=== PATIENT | male | born 1935 | race Caucasian/White ===

== ENCOUNTER → 2016-03-20 | Outpatient (CLI) | payer OTHER ==
[2016-03-20 10:07] LABS: ALANINE AMINOTRANSFERASE 39 U/L (21-72); ALBUMIN 4.7 g/dL (3.5-5.0); ALKALINE PHOSPHATASE 79 U/L (38-126); ASPARTATE AMINO TRANSFERASE 30 U/L (17-59); BILIRUBIN,TOTAL 1.2 mg/dL (0.2-1.3); CHOLESTEROL 107.83 mg/dL (0-200); Direct HDL 37 mg/dL (>40); TOTAL PROTEIN 7.3 g/dL (6.3-8.2); TRIGLYCERIDES 96 mg/dL (<150)
[2016-03-20 10:08] LABS: ANION GAP 10 (5-19); BLOOD UREA NITROGEN 16 mg/dL (7-20); CALCIUM 9.5 mg/dL (8.4-10.2); CARBON DIOXIDE 32 mmol/L (22-30); CHLORIDE 107 mmol/L (98-107); CREATININE RESULT 0.97 mg/dL (0.52-1.25); GLUCOSE 90 mg/dL (75-110); POTASSIUM 4.6 mmol/L (3.6-5.0); SODIUM 148.6 mmol/L (137-145)
[2016-03-20 10:18] LABS: DIRECT LDL 53 mg/dL (<100)
[2016-03-20 10:22] LABS: FREE T3 3.59 pg/mL (2.77-5.27)
== END ==
LOC: OD 08:36
PROVIDERS: ATTEND Internal Medicine Cardiovascular Disease
DX: E03.9 Hypothyroidism, unspecified (principal); E78.00 Pure hypercholesterolemia, unspecified; Z79.899 Other long term (current) drug therapy
CPT/HCPCS: 36415; 80048; 80061; 80076; 84439; 84443; 84481

== ENCOUNTER → 2017-04-09 | Outpatient (CLI) | payer MEDICARE ==
--- NOTE | 2017-04-09 09:02 | RADIOLOGY REPORT (SQ) ---
EXAM DESCRIPTION: CHEST PA/LATERAL COMPLETED DATE/TIME: 04/09/2017 8:51 am REASON FOR STUDY: BRONCHITIS, NOT SPECIFIED ACUTE OR CHRONIC COMPARISON: 02/06/2008, 08/17/2007 NUMBER OF VIEWS: Two view. TECHNIQUE: Frontal and lateral radiographic views of the chest acquired. LIMITATIONS: None. FINDINGS: LUNGS AND PLEURA: Interstitial changes both lower lung zones greater on the right. These are more prominent than on the older chest x-rays and may represent progression of pulmonary interst itial disease versus superimposition of active infiltrate particularly on the left. Followup chest x -ray in 4 to 6 weeks after treatment may be a consideration. MEDIASTINUM AND HILAR STRUCTURES: No masses or contour abnormalities. HEART AND VASCULATURE: Heart normal size. No evidence for failure. BONY STRUCTURES: No acute findings. HARDWARE: None. OTHER: No other significant finding. IMPRESSION: Interstitial changes both lower lung zones significantly greater on the right. Progress ion since the older chest x-ray of 2007 and may represent progression of interstitial disease versus superimposition of active infiltrate. Followup chest x-ray in 4 to 6 weeks may be a consideration. TECHNICAL DOCUMENTATION: JOB ID: [id number] [employer]- All Rights Reserved
== END ==
LOC: OD 08:34
PROVIDERS: ATTEND Physician Assistant
DX: J40 Bronchitis, not specified as acute or chronic (principal)
CPT/HCPCS: 71046

== ENCOUNTER 2017-06-05 17:06 | Emergency (ER) | payer MEDICARE ==
[2017-06-05 17:14] VITALS: BP 114/48
--- NOTE | 2017-06-05 17:20 | ER Document Report ---
ED Medical Screen (RME) - General Chief Complaint: Fall Injury Stated Complaint: FALL/LACERATION ABOVE RIGHT EYE Time Seen by Provider: 06/05/17 17:14 Notes: Patient is an 82-year-old male who presents to the emergency department today secondary to a mechanical fall that occurred prior to arrival. Patient denies any symptoms prior to this fall. Patient has a gaping laceration just superior to his right eyebrow. Patient also complains of minimal right wrist pain described as "stiffness". Patient is on a baby aspirin a day. Patient denies any loss of consciousness, neck pain, dizziness, vision change, or headache. I have greeted and performed a rapid initial assessment of this patient. A comprehensive ED assessment and evaluation of the patient, analysis of test results, and completion of the medical decision making process will be conducted by additional ED providers. Review of systems: Constitutional: No symptoms reported EENT: No symptoms reported Cardiovascular: No symptoms reported Respiratory: No symptoms reported Gastrointestinal: No symptoms reported Genitourinary: No symptoms reported Musculoskeletal: Right wrist pain Skin: Laceration above right eyebrow Hematologic/Lymphatic: No symptoms reported Neurological/Psychological: No symptoms reported Yes All other systems reviewed and negative Physical Exam: General: Alert, appears well. HEENT: Normocephalic. Gaping laceration superior to right eyebrow. PERRLA. Extraocular movements intact. Oropharynx clear. Neck: Supple. Respiratory: No respiratory distress. Abdominal: Normal Inspection. No distension. Extremities: Minimal tenderness over right wrist. Neurological: Normal cognition. AAOx4. Normal speech. Psychological: Normal affect. Normal Mood. Skin: Warm. Dry. Normal color. TRAVEL OUTSIDE OF THE [place] IN LAST 30 DAYS: No - Related Data Allergies/Adverse Reactions: No Known Allergies Allergy (Verified 06/05/17 17:10) Past Medical History - Past Medical History Cardiac Medical History: Reports: Hx Heart Attack, Hx Hypertension - CONTROLLED Pulmonary Medical History: Denies: Hx Asthma Neurological Medical History: Denies: Hx Cerebrovascular Accident, Hx Seizures Renal/ Medical History: Denies: Hx Peritoneal Dialysis GI Medical History: Denies: Hx Hepatitis, Hx Hiatal Hernia, Hx Ulcer Infectious Medical History: Denies: Hx Hepatitis Past Surgical History: Reports: Hx Open Heart Surgery - 2008. Denies: Hx Pacemaker Physical Exam - Vital signs Vitals: Temp Pulse Resp BP Pulse Ox 97.5 F 78 18 114/48 L 93 06/05/17 17:13 06/05/17 17:13 06/05/17 17:13 06/05/17 17:13 06/05/17 17:13 Course - Vital Signs Vital signs: Temp Pulse Resp BP Pulse Ox 97.5 F 78 18 114/48 L 93 06/05/17 17:13 06/05/17 17:13 06/05/17 17:13 06/05/17 17:13 06/05/17 17:13 Doctor's Discharge - Discharge Referrals: JACKIE SALDIVAR PA-C [Primary Care Provider] - Follow up as needed Scribe Documentation - Scribe Written by [place]:: Zakiya Farias, 06/05/2017 1804 acting as scribe for :: Blaine
--- NOTE | 2017-06-05 17:36 | RADIOLOGY REPORT (SQ) ---
EXAM DESCRIPTION: CT HEAD WITHOUT COMPLETED DATE/TIME: 06/05/2017 5:24 pm REASON FOR STUDY: fall from standing COMPARISON: None. TECHNIQUE: Axial images acquired through the brain without intravenous contrast. Images reviewed wi th bone, brain and subdural windows. Additional sagittal and coronal reconstructions were generated. Images stored on PACS. All CT scanners at this facility use dose modulation, iterative reconstruction, and/or weight based d osing when appropriate to reduce radiation dose to as low as reasonably achievable (ALARA). [facility]: Dose Right [facility]: CareDose [facility]: Dose Right [facility]: Teradose 4D [facility]: [employer] RADIATION DOSE: CT Rad equipment meets quality standard of care and radiation dose reduction techniq ues were employed. CTDIvol: 53.2 mGy. DLP: 964 mGy-cm. mGy. LIMITATIONS: None. FINDINGS: VENTRICLES: Normal size and contour. CEREBRUM: Low density throughout the left frontal lobe consistent with previous infarct. This likely involves a portion of the medial right frontal lobe as well. No hemorrhage or mass or shift detecte d. CEREBELLUM: No masses. No hemorrhage. No alteration of density. No evidence for acute infarction. EXTRAAXIAL SPACES: No fluid collections. No masses. ORBITS AND GLOBE: No intra- or extraconal masses. Normal contour of globe without masses. CALVARIUM: No fracture. PARANASAL SINUSES: No fluid or mucosal thickening. SOFT TISSUES: No mass or hematoma. OTHER: No other significant finding. 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 2. No fracture or acute intracranial abnormality appreciat ed. EVIDENCE OF ACUTE STROKE: NO. COMMENT: Quality ID # [id number]: Final reports with documentation of one or more dose reduction techniques (e.g., Automated exposure control, adjustment of the mA and/or kV according to patient size, use of iterative reconstruction technique) TECHNICAL DOCUMENTATION: JOB ID: [id number] [employer]- All Rights Reserved Reading location - IP/workstation name: [email or web address]
--- NOTE | 2017-06-05 17:42 | RADIOLOGY REPORT (SQ) ---
EXAM DESCRIPTION: WRIST RIGHT 3 VIEWS COMPLETED DATE/TIME: 06/05/2017 5:28 pm REASON FOR STUDY: fall COMPARISON: None. NUMBER OF VIEWS: Three views right wrist. LIMITATIONS: None. FINDINGS: Osteopenic. Fairly nondisplaced fracture through the lateral aspect of the radius involvi ng the radial styloid. Ulna intact. Grossly normal carpal alignment without fracture. OTHER: No other significant finding. IMPRESSION: Mild intra-articular nondisplaced non impacted distal radial fracture. TECHNICAL DOCUMENTATION: JOB ID: [id number] Reading location - IP/workstation name: [email or web address]
[2017-06-05] MEDS ORDERED: LIDOCAINE 1%/EPINEPHRINE INJ 20 ML VIAL INJ ONE (18:14)
[2017-06-05] MEDS ORDERED: DIPH/PERTUSS(ACELL)/TETANUS VAC/PF 0.5 ML SYR (>=10YO) IM ONE (18:15)
--- NOTE | 2017-06-05 18:18 | ER Document Report ---
HPI - HPI Patient complains to provider of: fall Onset: Just prior to arrival Onset/Duration: Sudden Quality of pain: Achy Pain Level: 2 Context: Patient states that he was walking and tripped over the sidewalk falling on his right hand and hitting his head. Patient denies any loss of consciousness. Patient denies any nausea or vomiting. Patient reports only mild tenderness to right wrist area. Associated Symptoms: Other - Facial laceration, right wrist pain Exacerbated by: Movement Relieved by: Denies Similar symptoms previously: No Recently seen / treated by doctor: No - ROS ROS below otherwise negative: Yes Systems Reviewed and Negative: Yes All other systems reviewed and negative - NEURO Neurology: DENIES: Headache - GASTROINTESTINAL Gastrointestinal: DENIES: Nausea, Patient vomiting - MUSCULOSKELETAL Musculoskeletal: REPORTS: Extremity pain, Swelling. DENIES: Back Pain, Neck Pain - DERM Skin Color: Normal Skin Problems: Laceration Past Medical History - General Information source: Patient - Social History Smoking Status: Current Every Day Smoker Smoking Education Provided: Yes Frequency of alcohol use: None Drug Abuse: None Occupation: None Lives with: Family Family History: Reviewed & Not Pertinent Patient has suicidal ideation: No Patient has homicidal ideation: No - Past Medical History Cardiac Medical History: Reports: Hx Heart Attack, Hx Hypertension - CONTROLLED Pulmonary Medical History: Denies: Hx Asthma Neurological Medical History: Denies: Hx Cerebrovascular Accident, Hx Seizures Renal/ Medical History: Denies: Hx Peritoneal Dialysis GI Medical History: Denies: Hx Hepatitis, Hx Hiatal Hernia, Hx Ulcer Infectious Medical History: Denies: Hx Hepatitis Past Surgical History: Reports: Hx Open Heart Surgery - 2008. Denies: Hx Pacemaker Vertical Provider Document - CONSTITUTIONAL Agree With Documented VS: Yes Exam Limitations: No Limitations General Appearance: WD/WN, No Apparent Distress - INFECTION CONTROL TRAVEL OUTSIDE OF THE [place] IN LAST 30 DAYS: No - HEENT HEENT: Normal ENT Exam, Normocephalic, PERRLA Notes: Patient with 3 cm laceration to right brow area Extraocular movements intact - NECK Neck: Normal Inspection, Supple. negative: Lymphadenopathy-Left, Lymphadenopathy-Right Notes: No midline tenderness, step-off or deformity - RESPIRATORY Respiratory: Breath Sounds Normal, No Respiratory Distress - CARDIOVASCULAR Cardiovascular: Regular Rate, Regular Rhythm, No Murmur - BACK Back: Normal Inspection - MUSCULOSKELETAL/EXTREMETIES Musculoskeletal/Extremeties: MAEW, FROM, Tender - Animal tenderness to right distal radius, Edema - Right distal radius - NEURO Level of Consciousness: Awake, Alert, Appropriate Motor/Sensory: No Motor Deficit - DERM Integumentary: Warm, Dry, Laceration - Right brow area Course - Re-evaluation Re-evalutation: 06/05/17 18:17 Offered patient pain medication, patient declined - Vital Signs Vital signs: Temp Pulse Resp BP Pulse Ox 97.5 F 78 18 114/48 L 93 06/05/17 17:13 06/05/17 17:13 06/05/17 17:13 06/05/17 17:13 06/05/17 17:13 - Diagnostic Test Radiology reviewed: Image reviewed, Reports reviewed Procedures - Immobilization Right Wrist Pre-Proc Neuro Vasc Exam: Normal Immobilizer type: Sugar tong, Sling Performed by: PCT Post-Proc Neuro Vasc Exam: Normal Alignment checked and good: Yes - Laceration/Wound Repair Right Face Wound length (cm): 3 Wound's Depth, Shape: Irregular Laceration pre-procedure: Other - surgical scrub Anesthetic type: 1% Lidocaine w/epi Wound explored: Clean, No foreign body removed Irrigated w/ Saline (mLs): 40 Wound Repaired With: Sutures Suture Size/Type: 6:0, Nylon Number of Sutures: 10 Post-procedure NV exam normal: Yes Complications: No Adult Head Front/Back picture: 1 - 3 cm lac Discharge - Discharge Clinical Impression: Facial laceration Qualifiers: Encounter type: initial encounter Qualified Code(s): S01.81XA - Laceration without foreign body of other part of head, initial encounter Distal radius fracture, right Qualifiers: Encounter type: initial encounter Fracture type: closed Fracture morphology: unspecified fracture morphology Qualified Code(s): S52.501A - Unspecified fracture of the lower end of right radius, initial encounter for closed fracture Head injury Qualifiers: Encounter type: initial encounter Qualified Code(s): S09.90XA - Unspecified injury of head, initial encounter Condition: Stable Disposition: HOME, SELF-CARE Instructions: Acetaminophen, Fractured Radius ([facility]), Head Injury Precautions ( [facility]), Laceration Care ([facility]), Sling as Treatment ([facility]), Splint Precautions ([facility]) , Tetanus Immunization Given ([facility]) Additional Instructions: Return immediately for any new or worsening symptoms Followup with your primary care provider, call tomorrow to make a followup appointment Follow-up with orthopedic doctor for further evaluation, call Thursday for an appointment time Referrals: JACKIE SALDIVAR PA-C [Primary Care Provider] - Follow up as needed [facility] [Provider Group] - 06/08/17
== END 2017-06-05 19:10 | disposition home or self-care (01) ==
LOC: ER 17:06
PROC: 0HQ1XZZ Repair Face Skin, External Approach (ICD-10-PCS; principal; 2017-06-05)
DX: S01.81XA Laceration without foreign body of other part of head, initial encounter (principal); S52.501A Unspecified fracture of the lower end of right radius, initial encounter for closed fracture; M25.531 Pain in right wrist; R51 Headache; W01.0XXA Fall on same level from slipping, tripping and stumbling without subsequent striking against object, initial encounter; F17.210 Nicotine dependence, cigarettes, uncomplicated; Z23 Encounter for immunization
CPT/HCPCS: 99284; 90471; 73110; 70450; 90715; 12013; J3490

== ENCOUNTER → 2017-12-15 | Outpatient (CLI) | payer MEDICARE ==
--- NOTE | 2017-12-15 10:03 | RADIOLOGY REPORT (SQ) ---
EXAM DESCRIPTION: CT CHEST WITH COMPLETED DATE/TIME: 12/15/2017 9:08 am REASON FOR STUDY: ABN FINDINGS ON CHEST X RAY R91.8 OTHER NONSPECIFIC ABNORMAL FINDING OF LUNG FIEL D COMPARISON: Chest x-ray dated 04/09/2017. TECHNIQUE: CT scan of the chest performed using helical scanning technique with dynamic intravenous contrast injection. Images reviewed with lung, soft tissue and bone windows. Reconstructed coronal and sagittal MPR and MIP images reviewed. All images stored on PACS. All CT scanners at this facility use dose modulation, iterative reconstruction, and/or weight based d osing when appropriate to reduce radiation dose to as low as reasonably achievable (ALARA). [facility]: Dose Right [facility]: CareDose [facility]: Dose Right [facility]: Teradose 4D [facility]: [employer] CONTRAST TYPE AND DOSE: contrast/concentration: Isovue 350.00 mg/ml; Total Contrast Delivered: 80.0 ml; Total Saline Delivered: 55.0 ml RENAL FUNCTION: Creatinine 1.1. RADIATION DOSE: CT Rad equipment meets quality standard of care and radiation dose reduction techniq ues were employed. CTDIvol: 7.5 mGy. DLP: 265 mGy-cm. . LIMITATIONS: None. FINDINGS: LUNGS AND PLEURA: Central lobular emphysema. Peripheral interstitial scarring. Calcified pleural plaques. Spiculated mass in the right middle lobe measuring approximately 2 cm. No pleural effusion. HILAR AND MEDIASTINAL STRUCTURES: No identified masses or abnormal nodes. HEART AND VASCULAR STRUCTURES: No aneurysm or dissection. No central pulmonary emboli. No pericardi al effusion. HARDWARE: None in the chest. UPPER ABDOMEN: No significant findings. Limited exam. THYROID AND OTHER SOFT TISSUES: No masses. No adenopathy. BONES: No significant finding. OTHER: No other significant finding. IMPRESSION: CHRONIC EMPHYSEMATOUS CHANGES WITH SCARRING. CALCIFIED PLEURAL PLAQUES. SPICULATED MAS S IN THE RIGHT MIDDLE LOBE CONCERNING FOR MALIGNANCY. TECHNICAL DOCUMENTATION: JOB ID: [id number] Quality ID # [id number]: Final reports with documentation of one or more dose reduction techniques (e.g., Au tomated exposure control, adjustment of the mA and/or kV according to patient size, use of iterative reconstruction technique) 2010 [employer]- All Rights Reserved Reading location - IP/workstation name: [email or web address]
== END ==
LOC: RAD 08:17
PROVIDERS: ATTEND Internal Medicine Geriatric Medicine
DX: J43.9 Emphysema, unspecified (principal); R91.8 Other nonspecific abnormal finding of lung field
CPT/HCPCS: 71260; 82565

== ENCOUNTER → 2017-12-22 | Outpatient (CLI) | payer MEDICARE ==
--- NOTE | 2017-12-23 13:00 | RADIOLOGY REPORT (SQ) ---
EXAM DESCRIPTION: PET CT SKULL/THIGH COMPLETED DATE/TIME: 12/22/2017 7:59 pm REASON FOR STUDY: R91.1 SOLITARY PULMONARY NODULE J98.4 OTHER DISORDERS OF LUNG R91.1 SOLITARY PULM ONARY NODULE J98.4 OTHER DISORDERS OF LUNG COMPARISON: 12/15/2017 RADIONUCLIDE AND DOSE: 8.9 mCi F18 FDG The route of agent administration: Intravenous FASTING BLOOD SUGAR: 102 mg/dl CONTRAST TYPE AND DOSE: No CT contrast given. TECHNIQUE: Blood glucose level was verified. Above dose of FDG was injected intravenously. 2-D seg mented attenuation correction images were obtained from the base of the skull to the midthighs. Nonc ontrast CT images were obtained for attenuation correction and fusion with emission images. CT image s were performed without oral or intravenous contrast and are not sensitive for parenchymal lesions. A series of overlapping emission PET images were obtained. Images reviewed and manipulated at [facility] work station by the radiologist. Images stored on PACS. LIMITATIONS: None. FINDINGS: HEAD AND NECK: No areas of abnormal metabolic activity in the soft tissues of the head and neck. CHEST: 2 cm spiculated mass right middle lobe with SUV of 7.3 compatible with malignancy. This is be st shown on axial image 83/255. There are mediastinal metabolically active lymph nodes as follows: 1.9 x 1.1 cm right peritracheal lymph node image 64/255 with SUV of 1.8 Multiple less than 1 cm AP window lymph nodes image 65-68/255 with SUV of 2.4 8 mm right hilar lymph node axial image 71/255 with SUV of 2.1 ABDOMEN AND PELVIS: A 4 x 4 cm right colon/ cecum mass is present with SUV of 20 worrisome for primar y colon cancer. No mesenteric or retroperitoneal adenopathy. PROXIMAL LOWER EXTREMITIES: No areas of abnormal metabolic activity in the soft tissues of the lower extremities. BONES: No abnormal metabolic activity in the visualized skeleton. 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 Calc ified pleural plaques. Calcified gallstones. 1 cm right lower pole intrarenal nonobstructive kidney stone SUV 1,250 OTHER: Liver background activity 2.4 SUV. Blood pool background activity 1.3 SUV IMPRESSION: Malignant mass in the right middle lobe with metabolically active small mediastinal lymp h nodes 4 cm hypermetabolic cecal mass worrisome for colon cancer TECHNICAL DOCUMENTATION: JOB ID: [id number] [employer]- All Rights Reserved Reading location - IP/workstation name: [email or web address]
== END ==
LOC: RAD 19:47
PROVIDERS: ATTEND Internal Medicine Critical Care Medicine
DX: J98.4 Other disorders of lung (principal); R91.1 Solitary pulmonary nodule; K80.80 Other cholelithiasis without obstruction; N20.0 Calculus of kidney; Z95.1 Presence of aortocoronary bypass graft
CPT/HCPCS: 78815; A9552

== ENCOUNTER 2018-07-31 13:15 | Inpatient (IN) | payer MEDICARE ==
[2018-07-31] MEDS ORDERED: ASPIRIN 81 MG TABLET, CHEWABLE PO ONE (14:18)
[2018-07-31] MEDS ORDERED: DILTIAZEM HCL INJ 25 MG/5 ML VIAL IV ONE (14:19)
--- NOTE | 2018-07-31 14:30 | ER Document Report ---
ED General - General Chief Complaint: Breathing Difficulty Stated Complaint: SHORTNESS OF BREATH Time Seen by Provider: 07/31/18 14:06 Primary Care Provider: ALLEN CHAN MD [Primary Care Provider] - Follow up as needed TRAVEL OUTSIDE OF THE [place] IN LAST 30 DAYS: No - HPI Notes: Patient is an 83-year-old male who presents to the emergency department for evaluation. He has been short of breath. I asked him how long he is felt short of breath, he states it has been since he received radiation at [place] for several months ago. He is currently being treated for lung cancer, last chemotherapy treatment 1 month ago. He also has a history of colon cancer. I asked him if he has chest pain, and he basically states he has chest pain every day. He states that he also gets chest pain with walking. He has not really discussed this with his primary care physician, but states he did discuss this with his oncologist. He denies any popping or paroxysmal nocturnal dyspnea. He does note swelling in his ankles. He cannot tell me how long this been going on. - Related Data Allergies/Adverse Reactions: No Known Allergies Allergy (Verified 07/31/18 13:19) Past Medical History - General Information source: Patient - Social History Smoking Status: Former Smoker Frequency of alcohol use: None Drug Abuse: None Family History: Reviewed & Not Pertinent - Past Medical History Cardiac Medical History: Reports: Hx Coronary Artery Disease, Hx Heart Attack, Hx Hypertension - CONTROLLED Pulmonary Medical History: Reports: Hx COPD, Hx Pneumonia Denies: Hx Asthma, Hx Bronchitis Neurological Medical History: Denies: Hx Cerebrovascular Accident, Hx Seizures Renal/ Medical History: Denies: Hx Peritoneal Dialysis Malignancy Medical History: Reports Hx Colorectal Cancer, Reports Hx Lung Cancer GI Medical History: Denies: Hx Hepatitis, Hx Hiatal Hernia, Hx Ulcer Musculoskeletal Medical History: Denies Hx Arthritis Infectious Medical History: Denies: Hx Hepatitis Past Surgical History: Reports: Hx Open Heart Surgery - 2008. Denies: Hx Pacemaker - Immunizations Hx Diphtheria, Pertussis, Tetanus Vaccination: No Review of Systems - Review of Systems Constitutional: See HPI EENT: No symptoms reported Cardiovascular: See HPI Respiratory: See HPI Gastrointestinal: No symptoms reported Genitourinary: No symptoms reported Musculoskeletal: See HPI Skin: No symptoms reported Neurological/Psychological: No symptoms reported Physical Exam - Vital signs Vitals: Temp Pulse Resp BP Pulse Ox 97.8 F 79 32 H 140/74 H 89 L 07/31/18 13:26 07/31/18 13:26 07/31/18 13:26 07/31/18 13:26 07/31/18 13:26 - Notes Notes: This is a pale 83-year-old gentleman, appears stated age, mildly tachypneic but no significant distress. Vital signs reviewed, please refer to chart. Head is normocephalic, atraumatic. Pupils equal round, reactive to light. Neck is supple without meningismus. Heart is irregularly irregular and markedly rapid. Lungs reveal bibasilar rales. Abdomen is soft, nontender, normoactive bowel sounds throughout. Extremities without cyanosis, clubbing. 2+ pitting edema at the ankles. Posterior calves are nontender. Peripheral pulses are equal. Skin is warm and dry. Patient is awake, alert, neurological exam is nonfocal. Course - Re-evaluation Re-evalutation: 07/31/18 14:29 Patient presents emergency department for evaluation. He had an EKG performed which revealed rapid atrial fibrillation. I went in to evaluate the patient. He was on oxygen by nasal cannula, on the awake overnight monitor. Laboratory investigations were ordered, as her chest x-ray, and Cardizem bolus and drip. We will continue to follow. 07/31/18 16:10 Patient's heart rate responded significantly to the initial Cardizem bolus. The drip was held, but his heart rate slowly creeped up into the 115 120 range. He was restarted on Cardizem. Laboratory investigations largely unremarkable. Will administer Lovenox, given increased risk of embolic event with atrial fibrillation, and will admit for further care. 07/31/18 16:13 07/31/18 17:[address] Camilo, he will admit the patient for Dr. Chan. - Vital Signs Vital signs: Temp Pulse Resp BP Pulse Ox 97.8 F 79 32 H 140/74 H 89 L 07/31/18 13:26 07/31/18 13:26 07/31/18 13:26 07/31/18 13:26 07/31/18 13:26 - Laboratory Result Diagrams: 07/31/18 14:38 07/31/18 14:38 Laboratory results interpreted by me: 07/31/18 07/31/18 14:38 14:38 RBC 3.36 L Hgb 10.9 L Hct 33.1 L MCV 99 H RDW 14.2 H Plt Count 120 L Sodium 147.6 H Carbon Dioxide 35 H BUN 25 H Creatine Kinase 48 L Total Protein 6.2 L Albumin 3.3 L - Diagnostic Test Radiology reviewed: Reports reviewed Radiology results interpreted by me: 07/31/18 16:09 Chest X-Ray 07/31/18 14:18 IMPRESSION: New right middle lobe consolidation when compared to PET-CT of 12/24/2017, which obscures the known right middle lobe mass. Findings may be related to post therapy changes or pneumonia in the appropriate clinical setting. - EKG Interpretation by Me Additional EKG results interpreted by me: 07/31/18 14:29 Atrial fibrillation with a rate of 142 bpm. Right axis deviation, although I do suspect lead placement. Right bundle branch block. Nonspecific ST changes, but no acute changes concerning for acute infarction. No old studies for comparison. 07/31/18 16:09 Repeat EKG reveals atrial flutter with a rate of 88 bpm, continued right bundle branch block, no other changes. Discharge - Discharge Clinical Impression: Rapid atrial fibrillation Condition: Stable Disposition: ADMITTED INPATIENT Admitting Provider: Gustabo Camilo covering Unit Admitted: I[facility] Referrals: ALLEN CHAN MD [Primary Care Provider] - Follow up as needed
--- NOTE | 2018-07-31 14:46 | RADIOLOGY REPORT (SQ) ---
EXAM DESCRIPTION: CHEST SINGLE VIEW COMPLETED DATE/TIME: 07/31/2018 2:33 pm REASON FOR STUDY: dyspnea, new atrial fibrillation COMPARISON: 12/22/2017 and earlier EXAM PARAMETERS: NUMBER OF VIEWS: One view. TECHNIQUE: Single frontal radiographic view of the chest acquired. RADIATION DOSE: NA LIMITATIONS: None. FINDINGS: LUNGS AND PLEURA: New right middle lobe consolidation. Chronic coarsened interstitial mar kings bilaterally. The previously visualized right middle lobe mass is obscured due to the consolida tion. No sizable pleural effusion. No pneumothorax. MEDIASTINUM AND HILAR STRUCTURES: No masses. Contour normal. HEART AND VASCULAR STRUCTURES: Heart normal in size. Normal vasculature. BONES: No acute findings. HARDWARE: Postsurgical changes of the mediastinum. OTHER: No other significant finding. IMPRESSION: New right middle lobe consolidation when compared to PET-CT of 12/24/2017, which obscures the known right middle lobe mass. Findings may be related to post therapy changes or pneumonia in t he appropriate clinical setting. TECHNICAL DOCUMENTATION: JOB ID: [id number] [employer]- All Rights Reserved Reading location - IP/workstation name: [email or web address]
[2018-07-31 15:05] LABS: ABSOLUTE EOSINOPHILS # (AUTO) 0.1 10^3/uL (0.0-0.6); ABSOLUTE LYMPHOCYTES (AUTO) 1.2 10^3/uL (0.5-4.7); ABSOLUTE MONOCYTES (AUTO) 0.7 10^3/uL (0.1-1.4); BASOPHILS % (AUTO) 0.4 % (0-2); EOSINOPHILS % (AUTO) 2.4 % (0-6); HEMATOCRIT 33.1 % (37.9-51.0); HEMOGLOBIN 10.9 g/dL (13.5-17.0); LYMPHOCYTES % (AUTO) 19.9 % (13-45); MEAN CORPUSCULAR HEMOGLOBIN 32.5 pg (27.0-33.4); MEAN CORPUSCULAR VOLUME 99 fl (80-97); MONOCYTES % (AUTO) 10.8 % (3-13); PLATELET COUNT 120 10^3/uL (150-450); RED BLOOD COUNT 3.36 10^6/uL (4.35-5.55); RED CELL DISTRIBUTION WIDTH 14.2 % (11.5-14.0); SEGMENTED NEUTROPHILS % (AUTO) 66.5 % (42-78); TOTAL CELLS COUNTED % (AUTO) 100 %; WHITE BLOOD COUNT 6.1 10^3/uL (4.0-10.5)
[2018-07-31 15:15] LABS: ALANINE AMINOTRANSFERASE 25 U/L (21-72); ALBUMIN 3.3 g/dL (3.5-5.0); ALKALINE PHOSPHATASE 76 U/L (38-126); ANION GAP 6 (5-19); ASPARTATE AMINO TRANSFERASE 22 U/L (17-59); BILIRUBIN,DIRECT 0.2 mg/dL (0.0-0.4); BILIRUBIN,TOTAL 0.9 mg/dL (0.2-1.3); BLOOD UREA NITROGEN 25 mg/dL (7-20); CALCIUM 8.8 mg/dL (8.4-10.2); CARBON DIOXIDE 35 mmol/L (22-30); CHLORIDE 107 mmol/L (98-107); CREATINE KINASE 48 U/L (55-170); GLUCOSE 107 mg/dL (75-110); POTASSIUM 4.3 mmol/L (3.6-5.0); SODIUM 147.6 mmol/L (137-145); TOTAL PROTEIN 6.2 g/dL (6.3-8.2)
[2018-07-31 15:33] LABS: CREATINE KINASE MB 2.04 ng/mL (<4.55); TROPONIN I 0.014 ng/mL
[2018-07-31] MEDS: DILTIAZEM HCL/D5W 125 MG/125 ML RTUINJ IV PRN (16:06)
[2018-07-31] MEDS ORDERED: ENOXAPARIN SODIUM INJ 80 MG/0.8 ML DISP.SYRIN SUBCUT ONE (16:12)
--- NOTE | 2018-07-31 17:52 | EKG REPORT ---
SEVERITY:- ABNORMAL ECG - ATRIAL FIB/FLUTTER, 88/MIN. CONSIDER DEXTROCARDIA : Confirmed by: Lon Kennedy MD 31-Jul-2018 17:51:51
--- NOTE | 2018-07-31 17:53 | EKG REPORT ---
SEVERITY:- ABNORMAL ECG - ATRIAL FIBRILLATION RVR 142. RBBB AND LPFB INFERIOR INFARCT, AGE INDETERMINATE LATERAL INFARCT, OLD : Confirmed by: Lon Kennedy MD 31-Jul-2018 17:52:58
--- NOTE | 2018-08-01 05:12 | RADIOLOGY REPORT (SQ) ---
EXAM DESCRIPTION: XR CHEST 1 VIEW COMPLETED DATE/TME: 08/01/2018 04:31 CLINICAL HISTORY: 83 years, Male, difficulty breathing COMPARISON: 07/31/2018 chest NUMBER OF VIEWS: 1 TECHNIQUE: Portable chest LIMITATIONS: None. FINDINGS: Heart size is stable. Grossly stable postsurgical change. Mixed interstitial and airspace opacities bilaterally. Osteopenia. No pneumothorax. IMPRESSION: Little interval change copyright 2010 [employer]- All Rights Reserved
[2018-08-01 06:10] LABS: ABSOLUTE EOSINOPHILS # (AUTO) 0.2 10^3/uL (0.0-0.6); ABSOLUTE LYMPHOCYTES (AUTO) 1.2 10^3/uL (0.5-4.7); ABSOLUTE MONOCYTES (AUTO) 0.6 10^3/uL (0.1-1.4); ABSOLUTE NEUT (AUTO) 3.4 10^3/uL (1.7-8.2); BASOPHILS % (AUTO) 0.3 % (0-2); EOSINOPHILS % (AUTO) 2.9 % (0-6); HEMATOCRIT 30.9 % (37.9-51.0); LYMPHOCYTES % (AUTO) 22.9 % (13-45); MEAN CORPUSCULAR HGB CONC 32.4 g/dL (32.0-36.0); MEAN CORPUSCULAR VOLUME 99 fl (80-97); MONOCYTES % (AUTO) 10.7 % (3-13); PLATELET COUNT 102 10^3/uL (150-450); RED BLOOD COUNT 3.13 10^6/uL (4.35-5.55); RED CELL DISTRIBUTION WIDTH 14.2 % (11.5-14.0); SEGMENTED NEUTROPHILS % (AUTO) 63.2 % (42-78); TOTAL CELLS COUNTED % (AUTO) 100 %; WHITE BLOOD COUNT 5.3 10^3/uL (4.0-10.5)
[2018-08-01 06:22] LABS: ANION GAP 6 (5-19); BLOOD UREA NITROGEN 20 mg/dL (7-20); CALCIUM 8.3 mg/dL (8.4-10.2); CARBON DIOXIDE 34 mmol/L (22-30); CHLORIDE 106 mmol/L (98-107); GLUCOSE 103 mg/dL (75-110); POTASSIUM 3.9 mmol/L (3.6-5.0); SODIUM 145.5 mmol/L (137-145)
[2018-08-01] MEDS: DILTIAZEM HCL/D5W 125 MG/125 ML RTUINJ IV PRN ×2 (06:47→21:11)
[2018-08-01] MEDS: ACETYLCYSTEINE 20% SOLN 800 MG/4 ML VIAL.NEB NEB SCH ×2 (10:00→19:56)
[2018-08-01 11:06] LABS: ARTERIAL BLOOD BASE EXCESS 7.4 mmol/L; ARTERIAL BLOOD H2CO3 2.19 mmol/L (1.05-1.35); ARTERIAL BLOOD HCO3 35.9 mmol/L (20-24); ARTERIAL BLOOD O2 SATURATION 93.6 % (94-98); ARTERIAL BLOOD PH 7.31 (7.35-7.45); ARTERIAL BLOOD PO2 76.8 mmHg (80-100); ARTERIAL BLOOD TOTAL CO2 38.1 mmol/L (23-27)
[2018-08-01 11:07] LABS: ARTERIAL BLOOD FIO2 5L
[2018-08-01 11:08] LABS: ARTERIAL BLOOD PCO2 72.9 mmHg (35-45)
[2018-08-01] MEDS: METOPROLOL TARTRATE 50 MG TABLET PO SCH ×2 (12:06→21:07)
--- NOTE | 2018-08-01 13:04 | RADIOLOGY REPORT (SQ) ---
EXAM DESCRIPTION: CT CHEST WITH COMPLETED DATE/TIME: 08/01/2018 11:41 am REASON FOR STUDY: copd ? metastatic lung disease COMPARISON: Chest films 08/01/2018, 07/31/2018, 04/09/2017 PET-CT 12/22/2017 CT chest 12/15/2017 TECHNIQUE: CT scan of the chest performed using helical scanning technique with dynamic intravenous contrast injection. Images reviewed with lung, soft tissue and bone windows. Reconstructed coronal and sagittal MPR and MIP images reviewed. All images stored on PACS. All CT scanners at this facility use dose modulation, iterative reconstruction, and/or weight based d osing when appropriate to reduce radiation dose to as low as reasonably achievable (ALARA). [facility]: Dose Right [facility]: CareDose [facility]: Dose Right [facility]: Teradose 4D [facility]: Refinder by [employer] CONTRAST TYPE AND DOSE: contrast/concentration: Isovue 350.00 mg/ml; Total Contrast Delivered: 70.0 ml; Total Saline Delivered: 55.0 ml RENAL FUNCTION: Creatinine 1.1 RADIATION DOSE: CT Rad equipment meets quality standard of care and radiation dose reduction techniq ues were employed. CTDIvol: 12.4 mGy. DLP: 448 mGy-cm. . LIMITATIONS: None. FINDINGS: LUNGS AND PLEURA: There is dense consolidation in the right lung base obscuring the malign ant appearing 2 cm mass seen in the right middle lobe on CT chest 12/15/2017, PET-CT 12/22/2017. Chronic appearing pleural calcification and pleural thickening is present in the right posterior cost ophrenic sulcus. Since the prior CT exams 12/15/2017, patient has developed a rind of circumferential right pleural th ickening, and very dense consolidation the right middle lobe and perihilar regions. Question post th erapeutic changes from right-sided radiation therapy. On the left side, trace pleural fluid/pleural thickening in the posterior costophrenic sulcus is pres ent. No gross pulmonary infiltrates or worrisome pulmonary nodules on the left. HILAR AND MEDIASTINAL STRUCTURES: 2.5 x 1.8 cm right paratracheal lymph node axial image 20, larger t kang on 12/15/2017. HEART AND VASCULAR STRUCTURES: No aneurysm or dissection. No central pulmonary emboli. No pericardi al effusion. Old sternotomy for CABG. Calcified aortic valve HARDWARE: None in the chest. UPPER ABDOMEN: No significant findings. Limited exam. THYROID AND OTHER SOFT TISSUES: No masses. No adenopathy. BONES: No significant finding. OTHER: No other significant finding. IMPRESSION: Patient has developed diffuse right pleural thickening and dense consolidation in the ri ght middle lobe in the area of prior spiculated nodule. These findings likely represent post radiati on change. TECHNICAL DOCUMENTATION: JOB ID: [id number] Quality ID # [id number]: Final reports with documentation of one or more dose reduction techniques (e.g., Au tomated exposure control, adjustment of the mA and/or kV according to patient size, use of iterative reconstruction technique) 2010 [employer]- All Rights Reserved Reading location - IP/workstation name: [email or web address]
--- NOTE | 2018-08-01 13:38 | PDOC H&P ---
History of Present Illness Admission Date/PCP: 07/31/18 17:05 ALLEN CHAN History of Present Illness: ZULAY LEONARD is a 83 year old male he came to the emergency room for evaluation of shortness of breath, in the emergency room he was found to be in atrial fibrillation with rapid ventricular response, he was started on Cardizem infusion in the emergency room. He has underlining multiple chronic comorbid conditions including COPD, squamous cell lung cancer and colon cancer. He apparently was diagnosed with squamous cell lung cancer back in January 2018, he has been going to [facility] for radiation treatment. In the emergency room after he was evaluated it was felt that he needed to be admitted for further treatment inpatient. The arterial blood gas that was done revealed acute respiratory acidosis, the pH 7.31, PCO2 72.9, PO2 76.8, bicarbonate 35.9, FiO2 5 L patient requires BiPAP machine. I discussed with team about CODE STATUS, he expresses a desire to be DNR. CT chest was done with contrast, it demonstrated a dense consolidation in the right lung base obscuring the malignant appearing 2 cm mass in the right middle lobe from CT chest on 12/16/19 18, a PET CT scan done on 12/22 there is chronic appearing pleural calcification and pleural thickening in the right posterior costophrenic sulcus. Since prior examination he has developed a ring of circumferential right pleural thickening of very dense consolidation in the right middle lobe and perihilar regions this changes suggests post radiation changes. Patient overall prognosis is very poor, he knows that, he is also considering palliative/hospice care as a potential option for his care. Past Medical History Cardiac Medical History: Reports: Coronary Artery Disease, Myocardial Infarction, Hypertension - CONTROLLED Pulmonary Medical History: Reports: Chronic Obstructive Pulmonary Disease (COPD), Pneumonia Denies: Asthma, Bronchitis Neurological Medical History: Denies: Seizures Malignancy Medical History: Reports: Colorectal Cancer, Lung Cancer GI Medical History: Denies: Hepatitis, Hiatal Hernia Musculoskeltal Medical History: Denies: Arthritis Psychiatric Medical History: Denies: Depression Hematology: Denies: Anemia, Sickle Cell Disease Past Surgical History Past Surgical History: Denies: Pacemaker Social History Smoking Status: Former Smoker Cigars Per Day: 1 Last Time Smoked: 03/2018 Frequency of Alcohol Use: Rare Hx Recreational Drug Use: No Hx Prescription Drug Abuse: No - Advance Directive Resuscitation Status: Do Not Resuscitate Family History Family History: Reviewed & Not Pertinent Parental Family History Reviewed: Yes Children Family History Reviewed: Yes Sibling(s) Family History Reviewed.: Yes Medication/Allergy Home Medications: Aspirin [Ecotrin 81 mg EC Tablet] 81 mg PO DAILY 06/27/14 Metoprolol Tartrate [Lopressor 50 mg Tablet] 50 mg PO DAILY 06/27/14 Rosuvastatin Calcium [Crestor 10 mg Tablet] 10 mg PO DAILY 06/27/14 Albuterol Sulfate [Ventolin Hfa 8 gm Mdi (1 Mdi/ER Disp)] 2 puff IH Q4HP PRN 08/01/18 Ferrous Sulfate [Feosol 325 mg Tablet] 325 mg PO BID 08/01/18 Umeclidinium Brm/Vilanterol Tr [Anoro Ellipta 62.5-25 Mcg INH] 1 each IH DAILY 08/01/18 Allergies/Adverse Reactions: No Known Allergies Allergy (Verified 07/31/18 13:19) Review of Systems Constitutional: ABSENT: chills, fever(s), headache(s), weight gain, weight loss Eyes: ABSENT: visual disturbances Ears: ABSENT: hearing changes Cardiovascular: PRESENT: dyspnea on exertion, palpitations Respiratory: PRESENT: dyspnea Gastrointestinal: ABSENT: abdominal pain, constipation, diarrhea, hematemesis, hematochezia, nausea, vomiting Genitourinary: ABSENT: dysuria, hematuria Musculoskeletal: ABSENT: joint swelling Integumentary: ABSENT: rash, wounds Neurological: ABSENT: abnormal gait, abnormal speech, confusion, dizziness, focal weakness, syncope Psychiatric: ABSENT: anxiety, depression, homidical ideation, suicidal ideation Endocrine: ABSENT: cold intolerance, heat intolerance, menstrual abnormalities, polydipsia, polyuria Hematologic/Lymphatic: ABSENT: easy bleeding, easy bruising, lymphadenopathy Physical Exam Vital Signs: Temp Pulse Resp BP Pulse Ox 97.7 F 96 22 H 104/55 L 93 08/01/18 03:24 08/01/18 07:00 08/01/18 03:24 08/01/18 06:00 08/01/18 03:24 Intake & Output 07/31/18 08/01/18 08/02/18 06:59 06:59 06:59 Intake Total 318 Output Total 225 Balance 93 Weight 80.5 kg General appearance: PRESENT: severe distress Head exam: PRESENT: atraumatic, normocephalic Eye exam: PRESENT: PERRLA Ear exam: PRESENT: normal external ear exam Mouth exam: PRESENT: moist, tongue midline Neck exam: PRESENT: full ROM Respiratory exam: PRESENT: wheezes Cardiovascular exam: PRESENT: RRR, +S1, +S2 Pulses: PRESENT: normal dorsalis pedis pul, +2 pedal pulses bilateral Vascular exam: PRESENT: normal capillary refill GI/Abdominal exam: PRESENT: normal bowel sounds, soft Rectal exam: PRESENT: deferred Neurological exam: PRESENT: alert, CN II-XII grossly intact. ABSENT: motor sensory deficit Psychiatric exam: PRESENT: appropriate affect, normal mood Skin exam: PRESENT: dry, intact, warm. ABSENT: cyanosis, rash Results Laboratory Results: 08/01/18 05:30 08/01/18 05:30 07/31/18 07/31/18 07/31/18 14:38 14:38 14:38 WBC 6.1 RBC 3.36 L Hgb 10.9 L Hct 33.1 L MCV 99 H MCH 32.5 MCHC 33.0 RDW 14.2 H Plt Count 120 L Seg Neutrophils % 66.5 Lymphocytes % 19.9 Monocytes % 10.8 Eosinophils % 2.4 Basophils % 0.4 Absolute Neutrophils 4.0 Absolute Lymphocytes 1.2 Absolute Monocytes 0.7 Absolute Eosinophils 0.1 Absolute Basophils 0.0 Carbonic Acid HCO3/H2CO3 Ratio ABG pH ABG pCO2 ABG pO2 ABG HCO3 ABG O2 Saturation ABG Base Excess FiO2 Sodium 147.6 H Potassium 4.3 Chloride 107 Carbon Dioxide 35 H Anion Gap 6 BUN 25 H Creatinine 1.08 Est GFR ( Amer) > 60 Est GFR (Non-Af Amer) > 60 Glucose 107 Calcium 8.8 Total Bilirubin 0.9 AST 22 ALT 25 Alkaline Phosphatase 76 Total Protein 6.2 L Albumin 3.3 L TSH 3.74 08/01/18 08/01/18 08/01/18 05:30 05:30 10:43 WBC 5.3 RBC 3.13 L Hgb 10.0 L Hct 30.9 L MCV 99 H MCH 32.0 MCHC 32.4 RDW 14.2 H Plt Count 102 L Seg Neutrophils % 63.2 Lymphocytes % 22.9 Monocytes % 10.7 Eosinophils % 2.9 Basophils % 0.3 Absolute Neutrophils 3.4 Absolute Lymphocytes 1.2 Absolute Monocytes 0.6 Absolute Eosinophils 0.2 Absolute Basophils 0.0 Carbonic Acid 2.19 H HCO3/H2CO3 Ratio 16:1 ABG pH 7.31 L ABG pCO2 72.9 H* ABG pO2 76.8 L ABG HCO3 35.9 H ABG O2 Saturation 93.6 L ABG Base Excess 7.4 FiO2 5L Sodium 145.5 H Potassium 3.9 Chloride 106 Carbon Dioxide 34 H Anion Gap 6 BUN 20 Creatinine 1.03 Est GFR ( Amer) > 60 Est GFR (Non-Af Amer) > 60 Glucose 103 Calcium 8.3 L Total Bilirubin AST ALT Alkaline Phosphatase Total Protein Albumin TSH 07/31/18 07/31/18 14:38 14:38 Creatine Kinase 48 L CK-MB (CK-2) 2.04 Troponin I 0.014 Impressions: Chest CT 08/01/18 00:00 IMPRESSION: Patient has developed diffuse right pleural thickening and dense consolidation in the right middle lobe in the area of prior spiculated nodule. These findings likely represent post radiation change. Chest X-Ray 08/01/18 04:31 IMPRESSION: Little interval change copyright 2011 [employer]- All Rights Reserved Assessment & Plan - Diagnosis (1) Acute hypercapnic respiratory failure Is this a current diagnosis for this admission?: Yes Plan: Start BiPAP machine to support breathing (2) Atrial fibrillation with RVR Is this a current diagnosis for this admission?: Yes Plan: Start Cardizem drip (3) Squamous cell carcinoma lung Qualifiers: Laterality: right Qualified Code(s): C34.91 - Malignant neoplasm of unspecified part of right bronchus or lung Is this a current diagnosis for this admission?: Yes (4) COPD with acute exacerbation Is this a current diagnosis for this admission?: Yes Plan: Start Solu-Medrol with bronchodilators
--- NOTE | 2018-08-01 13:41 | PDOC PROGRESS REPORT ---
Subjective Progress Note for:: 08/01/18 Subjective:: Patient was seen by the bedside, he continues to require BiPAP Reason For Visit: RAPID ATRIAL FIBRILLATION Physical Exam Vital Signs: Temp Pulse Resp BP Pulse Ox 97.7 F 96 22 H 104/55 L 93 08/01/18 03:24 08/01/18 07:00 08/01/18 03:24 08/01/18 06:00 08/01/18 03:24 Intake & Output 07/31/18 08/01/18 08/02/18 06:59 06:59 06:59 Intake Total 318 Output Total 225 Balance 93 Weight 80.5 kg General appearance: PRESENT: mild distress Eye exam: PRESENT: PERRLA Respiratory exam: PRESENT: wheezes Cardiovascular exam: PRESENT: +S1, +S2 GI/Abdominal exam: PRESENT: soft Neurological exam: PRESENT: alert Results Laboratory Results: 08/01/18 05:30 08/01/18 05:30 07/31/18 07/31/18 07/31/18 14:38 14:38 14:38 WBC 6.1 RBC 3.36 L Hgb 10.9 L Hct 33.1 L MCV 99 H MCH 32.5 MCHC 33.0 RDW 14.2 H Plt Count 120 L Seg Neutrophils % 66.5 Lymphocytes % 19.9 Monocytes % 10.8 Eosinophils % 2.4 Basophils % 0.4 Absolute Neutrophils 4.0 Absolute Lymphocytes 1.2 Absolute Monocytes 0.7 Absolute Eosinophils 0.1 Absolute Basophils 0.0 Carbonic Acid HCO3/H2CO3 Ratio ABG pH ABG pCO2 ABG pO2 ABG HCO3 ABG O2 Saturation ABG Base Excess FiO2 Sodium 147.6 H Potassium 4.3 Chloride 107 Carbon Dioxide 35 H Anion Gap 6 BUN 25 H Creatinine 1.08 Est GFR ( Amer) > 60 Est GFR (Non-Af Amer) > 60 Glucose 107 Calcium 8.8 Total Bilirubin 0.9 AST 22 ALT 25 Alkaline Phosphatase 76 Total Protein 6.2 L Albumin 3.3 L TSH 3.74 08/01/18 08/01/18 08/01/18 05:30 05:30 10:43 WBC 5.3 RBC 3.13 L Hgb 10.0 L Hct 30.9 L MCV 99 H MCH 32.0 MCHC 32.4 RDW 14.2 H Plt Count 102 L Seg Neutrophils % 63.2 Lymphocytes % 22.9 Monocytes % 10.7 Eosinophils % 2.9 Basophils % 0.3 Absolute Neutrophils 3.4 Absolute Lymphocytes 1.2 Absolute Monocytes 0.6 Absolute Eosinophils 0.2 Absolute Basophils 0.0 Carbonic Acid 2.19 H HCO3/H2CO3 Ratio 16:1 ABG pH 7.31 L ABG pCO2 72.9 H* ABG pO2 76.8 L ABG HCO3 35.9 H ABG O2 Saturation 93.6 L ABG Base Excess 7.4 FiO2 5L Sodium 145.5 H Potassium 3.9 Chloride 106 Carbon Dioxide 34 H Anion Gap 6 BUN 20 Creatinine 1.03 Est GFR ( Amer) > 60 Est GFR (Non-Af Amer) > 60 Glucose 103 Calcium 8.3 L Total Bilirubin AST ALT Alkaline Phosphatase Total Protein Albumin TSH 07/31/18 07/31/18 14:38 14:38 Creatine Kinase 48 L CK-MB (CK-2) 2.04 Troponin I 0.014 Impressions: Chest CT 08/01/18 00:00 IMPRESSION: Patient has developed diffuse right pleural thickening and dense consolidation in the right middle lobe in the area of prior spiculated nodule. These findings likely represent post radiation change. Chest X-Ray 08/01/18 04:31 IMPRESSION: Little interval change copyright 2011 [employer]- All Rights Reserved Assessment & Plan - Diagnosis (1) Acute hypercapnic respiratory failure Is this a current diagnosis for this admission?: Yes Plan: Continue BiPAP machine (2) Atrial fibrillation with RVR Is this a current diagnosis for this admission?: Yes (3) Squamous cell carcinoma lung Qualifiers: Laterality: right Qualified Code(s): C34.91 - Malignant neoplasm of unspecified part of right bronchus or lung Is this a current diagnosis for this admission?: Yes (4) COPD with acute exacerbation Is this a current diagnosis for this admission?: Yes Plan: Continue treatment
--- NOTE | 2018-08-01 13:42 | ADVANCED CARE ---
- Diagnosis (1) Acute hypercapnic respiratory failure Diagnosis Current: Yes (2) Atrial fibrillation with RVR Diagnosis Current: Yes (3) Squamous cell carcinoma lung Diagnosis Current: Yes (4) COPD with acute exacerbation Diagnosis Current: Yes Resuscitation Status: Do Not Resuscitate Discussion: Discussed DNR status with patient
[2018-08-01] MEDS ORDERED: (PENDING PHARMACY ID) (Umeclidinium Brm/Vilanterol Tr [Anoro Ellipta 62.5-25 Mcg Inh] 1 EA IH SCH (13:45)
[2018-08-01] MEDS: METHYLPREDNISOLONE INJ 125 MG/2 ML SDV IV SCH ×2 (15:55→21:07)
[2018-08-01] MEDS: FERROUS SULFATE 325 MG TABLET PO SCH ×2 (15:55→20:08)
[2018-08-01] MEDS: ASPIRIN 81 MG TABLET, ENT COATED PO SCH (15:55)
[2018-08-01] MEDS: IPRATROPIUM/ALBUTEROL 0.5-2.5 MG/3 ML AMPUL NEB PRN (19:56)
[2018-08-02] MEDS: METHYLPREDNISOLONE INJ 125 MG/2 ML SDV IV SCH ×3 (05:39→23:15)
[2018-08-02 05:46] LABS: HEMATOCRIT 34.6 % (37.9-51.0); HEMOGLOBIN 11.1 g/dL (13.5-17.0); MEAN CORPUSCULAR HEMOGLOBIN 31.8 pg (27.0-33.4); MEAN CORPUSCULAR VOLUME 100 fl (80-97); PLATELET COUNT 127 10^3/uL (150-450); RED BLOOD COUNT 3.48 10^6/uL (4.35-5.55); RED CELL DISTRIBUTION WIDTH 14.7 % (11.5-14.0); WHITE BLOOD COUNT 5.7 10^3/uL (4.0-10.5)
[2018-08-02] MEDS ORDERED: ALBUTEROL SULFATE HFA (90 MCG/PUFF) 8 GM MDI (1 MDI/ER DISP) IH PRN (08:30)
[2018-08-02] MEDS: IPRATROPIUM/ALBUTEROL 0.5-2.5 MG/3 ML AMPUL NEB PRN ×2 (08:42→20:07)
[2018-08-02] MEDS: ACETYLCYSTEINE 20% SOLN 800 MG/4 ML VIAL.NEB NEB SCH ×2 (08:42→20:07)
[2018-08-02] MEDS ORDERED: ALBUTEROL SULFATE HFA (90 MCG/PUFF) 200 PUFF/8.5 GM MDI IH PRN (09:28)
[2018-08-02] MEDS: METOPROLOL TARTRATE 50 MG TABLET PO SCH ×2 (09:51→22:31)
[2018-08-02] MEDS: DILTIAZEM HCL 30 MG TABLET PO SCH ×5 (09:52→23:19)
[2018-08-02] MEDS: FERROUS SULFATE 325 MG TABLET PO SCH ×3 (09:52→19:59)
[2018-08-02] MEDS: ASPIRIN 81 MG TABLET, ENT COATED PO SCH (09:52)
[2018-08-02] MEDS ORDERED: ONDANSETRON HCL INJ/PF 4 MG/2 ML SDV ONE (11:45)
[2018-08-02] MEDS ORDERED: PANTOPRAZOLE SODIUM 40 MG VIAL IV ONE ×2 (13:30→17:30)
[2018-08-02 14:27] LABS: TROPONIN I < 0.012 ng/mL
--- NOTE | 2018-08-02 18:38 | PDOC PROGRESS REPORT ---
Subjective Progress Note for:: 08/02/18 Subjective:: Patient still coughing with poor expectoration. No fever or chills. No chest pain. No nausea or vomiting. No abdominal pain. Remainon IV solu Medrol and bronchodilators therapy. There is some degree of memory impairment. Reason For Visit: ACUTE HYPOXEMIC RESPIRATORY FAILURE,COPD Physical Exam Vital Signs: Temp Pulse Resp BP Pulse Ox 97.1 F 81 32 H 115/62 95 08/02/18 03:17 08/02/18 07:00 08/02/18 03:17 08/02/18 07:00 08/02/18 03:17 Intake & Output 08/01/18 08/02/18 08/03/18 06:59 06:59 06:59 Intake Total 318 1276 Output Total 225 500 Balance 93 776 Weight 80.5 kg 80.5 kg General appearance: PRESENT: mild distress - remain on supplemental oxygen via nasal cannula Head exam: PRESENT: atraumatic, normocephalic Eye exam: PRESENT: conjunctiva pink. ABSENT: scleral icterus Ear exam: PRESENT: normal external ear exam Mouth exam: PRESENT: moist Respiratory exam: PRESENT: crackles, decreased breath sounds, rhonchi Cardiovascular exam: PRESENT: RRR, +S1, +S2. ABSENT: diastolic murmur, rubs, systolic murmur Vascular exam: ABSENT: pallor GI/Abdominal exam: PRESENT: normal bowel sounds, soft. ABSENT: distended, guarding, mass, organolmegaly, rebound, tenderness Extremities exam: ABSENT: pedal edema Neurological exam: PRESENT: alert, awake Psychiatric exam: PRESENT: appropriate affect, normal mood. ABSENT: homicidal i deation, suicidal ideation Skin exam: PRESENT: dry, warm Results Laboratory Results: 08/02/18 05:20 08/01/18 05:30 08/01/18 08/02/18 10:43 05:20 WBC 5.7 RBC 3.48 L Hgb 11.1 L Hct 34.6 L MCV 100 H MCH 31.8 MCHC 32.0 RDW 14.7 H Plt Count 127 L Carbonic Acid 2.19 H HCO3/H2CO3 Ratio 16:1 ABG pH 7.31 L ABG pCO2 72.9 H* ABG pO2 76.8 L ABG HCO3 35.9 H ABG O2 Saturation 93.6 L ABG Base Excess 7.4 FiO2 5L 07/31/18 07/31/18 14:38 14:38 Creatine Kinase 48 L CK-MB (CK-2) 2.04 Troponin I 0.014 Impressions: Chest CT 08/01/18 00:00 IMPRESSION: Patient has developed diffuse right pleural thickening and dense consolidation in the right middle lobe in the area of prior spiculated nodule. These findings likely represent post radiation change. Chest X-Ray 08/01/18 04:31 IMPRESSION: Little interval change copyright 2011 [employer]- All Rights Reserved Assessment & Plan - Diagnosis (1) COPD with acute exacerbation Is this a current diagnosis for this admission?: Yes Plan: Continue current medication management. Overall prognosis is poor in view of his lung cancer. (2) Acute hypercapnic respiratory failure Is this a current diagnosis for this admission?: Yes Plan: Continue current medication management. (3) Atrial fibrillation with RVR Is this a current diagnosis for this admission?: Yes Plan: D/C IV Cardizem. Start on oral Cardizem 30 mg p.o q6 hours. Continue other current medication management. (4) Squamous cell carcinoma lung Qualifiers: Laterality: right Qualified Code(s): C34.91 - Malignant neoplasm of unspecified part of right bronchus or lung Is this a current diagnosis for this admission?: Yes Plan: Continue current medication management. - Time Time Spent with patient: 25-34 minutes Medications reviewed and adjusted accordingly: Yes Anticipated discharge: Home with Homehealth, Hospice Within: Other - Inpatient Certification Based on my medical assessment, after consideration of the patient's comorbidities, presenting symptoms, or acuity I expect that the services needed warrant INPATIENT care.: Yes I certify that my determination is in accordance with my understanding of Medicare's requirements for reasonable and necessary INPATIENT services [42 CFR 412.3e].: Yes Medical Necessity: Significant Comorbidiites Make Outpatient Treatment Too Risky, Need Close Monitoring Due to Risk of Patient Decompensation, Need For IV Fluids, Need For Continuous Telemetry Monitoring, Need for Nebulizer Therapy and Monitoring of Response, Risk of Complication if Not Cared For in Hospital, Risk of Diagnosis Which Will Require Inpatient Eval/Care/Monitoring Post Hospital Care: D/C [employer] Supervisor Documentation - Plan Summary Plan Summary: See attending physician orders for details of care plan.
[2018-08-02 18:39] LABS: ARTERIAL BLOOD BASE EXCESS 4.4 mmol/L; ARTERIAL BLOOD H2CO3 2.92 mmol/L (1.05-1.35); ARTERIAL BLOOD HCO3 35.7 mmol/L (20-24); ARTERIAL BLOOD O2 SATURATION 84.6 % (94-98); ARTERIAL BLOOD TOTAL CO2 38.7 mmol/L (23-27)
[2018-08-02 18:42] LABS: ARTERIAL BLOOD FIO2 5L; ARTERIAL BLOOD PH 7.18 (7.35-7.45)
[2018-08-02 18:52] LABS: CREATINE KINASE MB 1.57 ng/mL (<4.55); TROPONIN I 0.012 ng/mL
[2018-08-02] MEDS: ATORVASTATIN CALCIUM 20 MG TABLET PO SCH (22:30)
[2018-08-02] MEDS: FAMOTIDINE INJ/PF 20 MG/2 ML SDV IV SCH (23:13)
[2018-08-03 02:04] LABS: CREATINE KINASE MB 1.61 ng/mL (<4.55); TROPONIN I 0.017 ng/mL
[2018-08-03] MEDS ORDERED: LORAZEPAM INJ 2 MG/1 ML VIAL IV PRN (02:11)
[2018-08-03] MEDS: DILTIAZEM HCL 30 MG TABLET PO SCH ×4 (05:09→23:31)
[2018-08-03] MEDS: METHYLPREDNISOLONE INJ 125 MG/2 ML SDV IV SCH ×3 (06:07→22:01)
--- NOTE | 2018-08-03 08:09 | PDOC PROGRESS REPORT ---
Subjective Progress Note for:: 08/03/18 Subjective:: Patient became more somnolent and unresponsive yesterday evening. His ABG did revealed significant hypercapnia with respiratory acidosis. Patient was placed back on BiPAP support buy his prior tracheostomy was detrimental to any significant benefit. He had episode of vomiting on the BiPAP. He is currently on face mask supplemental oxygen. Family decided change of care level to comfort care in view of his poor prognosis and DNR status. Reason For Visit: ACUTE HYPOXEMIC RESPIRATORY FAILURE,COPD Physical Exam Vital Signs: Temp Pulse Resp BP Pulse Ox 98.1 F 66 24 H 122/75 93 08/03/18 04:40 08/03/18 04:40 08/03/18 04:40 08/03/18 04:40 08/03/18 04:40 Intake & Output 08/02/18 08/03/18 08/04/18 06:59 06:59 06:59 Intake Total 1276 68 Output Total 500 215 Balance 776 -147 Weight 80.5 kg 81 kg General appearance: PRESENT: severe distress - on face mask supplemental oxygen Head exam: PRESENT: atraumatic, normocephalic Eye exam: PRESENT: conjunctiva pink. ABSENT: scleral icterus Respiratory exam: PRESENT: decreased breath sounds - at lung bases Cardiovascular exam: PRESENT: RRR. ABSENT: diastolic murmur, rubs, systolic murmur Vascular exam: ABSENT: pallor GI/Abdominal exam: PRESENT: normal bowel sounds, soft Extremities exam: ABSENT: pedal edema Neurological exam: PRESENT: altered - even to painful stimuli at this time. Skin exam: PRESENT: dry, warm Results Laboratory Results: 08/02/18 05:20 08/01/18 05:30 08/02/18 18:25 Carbonic Acid 2.92 H HCO3/H2CO3 Ratio 12:1 ABG pH 7.18 L* ABG pCO2 97.0 H* ABG pO2 63.0 L ABG HCO3 35.7 H ABG O2 Saturation 84.6 L ABG Base Excess 4.4 FiO2 5L 07/31/18 07/31/18 08/02/18 14:38 14:38 12:54 Creatine Kinase 48 L 27 L CK-MB (CK-2) 2.04 Troponin I 0.014 08/02/18 08/02/18 08/02/18 12:54 18:12 18:12 Creatine Kinase 22 L CK-MB (CK-2) 1.50 1.57 Troponin I < 0.012 0.012 08/03/18 08/03/18 01:10 01:10 Creatine Kinase 23 L CK-MB (CK-2) 1.61 Troponin I 0.017 Impressions: Chest CT 08/01/18 00:00 IMPRESSION: Patient has developed diffuse right pleural thickening and dense consolidation in the right middle lobe in the area of prior spiculated nodule. These findings likely represent post radiation change. Chest X-Ray 08/01/18 04:31 IMPRESSION: Little interval change copyright 2011 [employer]- All Rights Reserved Assessment & Plan - Diagnosis (1) COPD with acute exacerbation Is this a current diagnosis for this admission?: Yes (2) Acute hypercapnic respiratory failure Is this a current diagnosis for this admission?: Yes (3) Atrial fibrillation with RVR Is this a current diagnosis for this admission?: Yes (4) Squamous cell carcinoma lung Qualifiers: Laterality: right Qualified Code(s): C34.91 - Malignant neoplasm of unspecified part of right bronchus or lung Is this a current diagnosis for this admission?: Yes - Time Time Spent with patient: 25-34 minutes Medications reviewed and adjusted accordingly: Yes Anticipated discharge: Hospice Within: Other - Inpatient Certification Based on my medical assessment, after consideration of the patient's comorbiditi es, presenting symptoms, or acuity I expect that the services needed warrant INPATIENT care.: Yes I certify that my determination is in accordance with my understanding of [facility]'s requirements for reasonable and necessary INPATIENT services [42 CFR 412.3e].: Yes Medical Necessity: Significant Comorbidiites Make Outpatient Treatment Too Risky, Need Close Monitoring Due to Risk of Patient Decompensation, Need For Continuous Telemetry Monitoring, Risk of Complication if Not Cared For in Hospital, Risk of Diagnosis Which Will Require Inpatient Eval/Care/Monitoring Post Hospital Care: D/C [employer] Operator Documentation - Plan Summary Plan Summary: Maintain on comfort care level. Overall prognosis very poor.
[2018-08-03] MEDS: ACETYLCYSTEINE 20% SOLN 800 MG/4 ML VIAL.NEB NEB SCH ×2 (09:00→20:07)
[2018-08-03] MEDS: ASPIRIN 81 MG TABLET, ENT COATED PO SCH (09:54)
[2018-08-03] MEDS: FERROUS SULFATE 325 MG TABLET PO SCH ×2 (09:54→18:59)
[2018-08-03] MEDS: METOPROLOL TARTRATE 50 MG TABLET PO SCH ×2 (09:55→22:01)
[2018-08-03] MEDS: FAMOTIDINE INJ/PF 20 MG/2 ML SDV IV SCH ×2 (09:55→22:01)
[2018-08-03] MEDS ORDERED: PANTOPRAZOLE SODIUM 40 MG VIAL IV SCH (10:00)
[2018-08-03 21:45] VITALS: BP 76/19
[2018-08-03] MEDS: ATORVASTATIN CALCIUM 20 MG TABLET PO SCH (22:00)
--- NOTE | 2018-08-04 08:23 | Death Summary ---
Summary Date : 08/04/18 Autopsy: No Resuscitation Status: Comfort Measures Only Primary Care Provider: ALLEN CHAN - Final Diagnosis (1) COPD with acute exacerbation Is this a current diagnosis for this admission?: Yes (2) Acute hypercapnic respiratory failure Is this a current diagnosis for this admission?: Yes (3) Atrial fibrillation with RVR Is this a current diagnosis for this admission?: Yes (4) Squamous cell carcinoma lung Is this a current diagnosis for this admission?: Yes Hospital Course:: Patient was admitted for acute hypercapnic respiratory failure with exacerbated COPD and atrial fibrillation with rapid ventricular rate. He had history of squamous cell cancer of the lung. He was managed with IV Solu Medrol and bronchodilators. He was maintained on BiPAP support but less effective due to his patent tracheostomy site. Patient remain on DNR status and decompensated due to his hyercapnic state and ineffective BiPAP support. He had episode of vomiting while on BiPAP. Family eventually made him a comfort care only. He was pronounced at about 0510 hour this morning.
== END 2018-08-04 05:10 | DRG 189 ==
LOC: ER 13:15 → EH 17:05 → 3N 18:01 → 3S 08-01 17:17
PROVIDERS: ADMIT Internal Medicine Geriatric Medicine; ATTEND Internal Medicine Geriatric Medicine
PROC: 5A09457 Assistance with Respiratory Ventilation, 24-96 Consecutive Hours, Continuous Positive Airway Pressure (ICD-10-PCS; principal; 2018-08-01)
DX: J96.02 Acute respiratory failure with hypercapnia (principal); J44.1 Chronic obstructive pulmonary disease with (acute) exacerbation; C34.91 Malignant neoplasm of unspecified part of right bronchus or lung; Z66 Do not resuscitate; I25.10 Atherosclerotic heart disease of native coronary artery without angina pectoris; I10 Essential (primary) hypertension; I48.91 Unspecified atrial fibrillation; I25.2 Old myocardial infarction; Z78.1 Physical restraint status; Z85.038 Personal history of other malignant neoplasm of large intestine; Z92.3 Personal history of irradiation; Z87.891 Personal history of nicotine dependence; Z79.899 Other long term (current) drug therapy; Z79.82 Long term (current) use of aspirin
CPT/HCPCS: 36415; 71045; 71260; 80048; 80053; 82550; 82553; 82803; 84443; 84484; 85025; 85027; 87070; 87205; 93005; 93010; 94660; 96372; 96374; 99285; J1650; J2060; J2405; J2930; J3490; J7620; S0028